=== PATIENT | male | born 1985 ===

== ENCOUNTER 2018-02-19 19:28 | Emergency (ER) | payer SELFPAY ==
[2018-02-19 19:29] VITALS: BMI 22.9
[2018-02-19 19:34] VITALS: BP 125/77; PULSE 72; RESP 16; TEMP 98.1; O2SAT 98
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
[2018-02-19] MEDS ORDERED: Bacitracin 500 Units/gm Oint Foilpak UD ONE ×2 (20:14→20:26)
--- NOTE | 2018-02-20 09:26 | RAD ---
PROCEDURE: Left Hand Radiographs. HISTORY: Pain, fall COMPARISON: None. FINDINGS: BONES: Normal. No fracture. JOINTS: Normal. No osteoarthritic changes. SOFT TISSUES: Normal. OTHER FINDINGS: None. IMPRESSION: Normal left hand radiographs.
--- NOTE | 2018-02-20 09:27 | RAD ---
PROCEDURE: Left Hip X-ray Radiographs. HISTORY: Pain, left hip COMPARISON: None. FINDINGS: BONES: Normal. No fracture. JOINTS: Normal. SOFT TISSUES: Normal. OTHER FINDINGS: None. IMPRESSION: Normal left hip radiographs.
== END 2018-02-19 21:31 | disposition home or self-care (01) ==
LOC: C.ER 19:28
DX: S40.212A Abrasion of left shoulder, initial encounter (principal); S50.812A Abrasion of left forearm, initial encounter; S50.811A Abrasion of right forearm, initial encounter; V18.4XXA Pedal cycle driver injured in noncollision transport accident in traffic accident, initial encounter; Y92.89 Other specified places as the place of occurrence of the external cause

== ENCOUNTER 2018-04-10 11:04 | Emergency (ER) | payer MEDICAID, OTHER ==
[2018-04-10 11:05] VITALS: BMI 22.9
[2018-04-10 11:11] VITALS: BP 130/87; PULSE 90; RESP 20; TEMP 98.4; O2SAT 97
--- NOTE | 2018-04-10 11:49 | C.PDOC ---
History Of Present Illness 32-year-old male presents to the ED for evaluation of sore throat which began yesterday. Patient reports subjective fever. Denies sick contacts. SORE THROAT SINCE YEST. SUBJ FEVER. NO SICK CONTACTS EXAM NAD HEENT +PHARYNGITIS W ERYTHEMA, EXUDATE. NO SWELL, DROOLING +SUBMAND NODE REMAINDER NEG Time Seen by Provider: 04/10/18 11:44 Chief Complaint (Nursing): ENT Problem History Per: Patient History/Exam Limitations: no limitations Onset/Duration Of Symptoms: Hrs Current Symptoms Are (Timing): Still Present Location Of Pain: Throat Sick Contacts (Context): None Associated Symptoms: Fever (subjective ), Sore Throat Additional History Per: Patient Past Medical History Reviewed: Historical Data, Nursing Documentation, Vital Signs Vital Signs: Last Vital Signs Temp 98.4 F 04/10/18 11:08 Pulse 90 04/10/18 11:08 Resp 20 04/10/18 11:08 BP 130/87 04/10/18 11:08 Pulse Ox 97 04/10/18 11:49 - Medical History PMH: No Chronic Diseases Surgical History: No Surg Hx Family History: States: Unknown Family Hx - Social History Hx Tobacco Use: Yes Hx Alcohol Use: Yes Hx Substance Use: No - Immunization History Hx Tetanus Toxoid Vaccination: Yes Hx Influenza Vaccination: No Hx Pneumococcal Vaccination: No Review Of Systems Constitutional: Positive for: Fever (subjective ) ENT: Positive for: Throat Pain Physical Exam - Physical Exam Appears: Non-toxic, No Acute Distress Skin: Normal Color, Warm, Dry Head: Atraumatic, Normacephalic Eye(s): bilateral: Normal Inspection Ear(s): Bilateral: Normal Nose: Normal, No Discharge Oral Mucosa: Moist Throat: Erythema, Exudate, No Drooling, No Other (swelling ) Lymphatic: Other (submandibular node ) Chest: Symmetrical, No Deformity, No Tenderness Cardiovascular: Rhythm Regular, No Murmur Respiratory: Normal Breath Sounds, No Rales, No Rhonchi, No Wheezing Extremity: Normal ROM, Capillary Refill (less than 2 seconds ) Neurological/Psych: Oriented x3, Normal Speech, Normal Cognition ED Course And Treatment O2 Sat by Pulse Oximetry: 97 (on RA) Pulse Ox Interpretation: Normal Disposition Counseled Patient/Family Regarding: Diagnosis, Need For Followup, Rx Given - Disposition Referrals: [facility] [Outside] [facility] [Outside] Disposition: HOME/ ROUTINE Disposition Time: 11:47 Condition: GOOD Prescriptions: Amoxicillin [Amoxil 500 mg Cap] 500 mg PO BID #20 cap Ibuprofen [Motrin] 600 mg PO Q6 #30 tab Instructions: Sore Throat, Adult (DC) Forms: [employer] (Namibian) - Clinical Impression Clinical Impression: Acute pharyngitis - Scribe Statement The provider has reviewed the documentation as recorded by the Scribe (Karla Souza) Provider Attestation: All medical record entries made by the Scribe were at my direction and personally dictated by me. I have reviewed the chart and agree that the record accurately reflects my personal performance of the history, physical exam, medical decision making, and the department course for this patient. I have also personally directed, reviewed, and agree with the discharge instructions and disposition.
== END 2018-04-10 11:54 | disposition home or self-care (01) ==
LOC: C.ER 11:04
DX: J02.9 Acute pharyngitis, unspecified (principal); Z72.0 Tobacco use

== ENCOUNTER 2018-05-31 10:18 | Emergency (ER) | payer MEDICAID, OTHER ==
[2018-05-31 10:18] VITALS: BMI 22.9
[2018-05-31 10:32] VITALS: RESP 16; TEMP 98.1; O2SAT 98
--- NOTE | 2018-05-31 11:01 | C.PDOC ---
History Of Present Illness 32 year old male presents to the ED complaining of sore throat for 2 days. Associated symptoms include coughing. Denies fever or chills. Reports he took Ibuprofen with no relief. States he had a similar presentation in February 2018. Time Seen by Provider: 05/31/18 10:36 Chief Complaint (Nursing): ENT Problem History Per: Patient History/Exam Limitations: no limitations Onset/Duration Of Symptoms: Days (2) Current Symptoms Are (Timing): Still Present Location Of Pain: Throat Associated Symptoms: Sore Throat, Cough. denies: Fever, Chills Past Medical History Reviewed: Historical Data, Nursing Documentation, Vital Signs Vital Signs: Last Vital Signs Temp 98.1 F 05/31/18 10:27 Pulse 69 05/31/18 10:27 Resp 16 05/31/18 10:27 BP 126/74 05/31/18 10:27 Pulse Ox 98 05/31/18 10:27 - Medical History PMH: No Chronic Diseases Surgical History: No Surg Hx Family History: States: No Known Family Hx - Social History Hx Tobacco Use: Yes Hx Alcohol Use: Yes Hx Substance Use: No - Immunization History Hx Tetanus Toxoid Vaccination: Yes Hx Influenza Vaccination: No Hx Pneumococcal Vaccination: No Review Of Systems Except As Marked, All Systems Reviewed And Found Negative. Constitutional: Negative for: Fever, Chills ENT: Positive for: Throat Pain Respiratory: Positive for: Cough Physical Exam - Physical Exam Appears: Non-toxic Skin: Warm, Dry Head: Normacephalic Eye(s): bilateral: Normal Inspection Ear(s): Bilateral: Normal Nose: Normal Tongue: Normal Appearing Lips: Normal Appearing Throat: Erythema, Exudate Neck: Supple Lymphatic: Adenopathy (Interior cervical lymphadenopathy ) Cardiovascular: Rhythm Regular Respiratory: Normal Breath Sounds, No Rales, No Rhonchi, No Wheezing Neurological/Psych: Oriented x3, Normal Speech Gait: Steady ED Course And Treatment O2 Sat by Pulse Oximetry: 98 (RA) Pulse Ox Interpretation: Normal Medical Decision Making Medical Decision Making: Plan: - Amoxicillin 500mg PO On re-examination, patient is resting comfortably in no acute distress. Patient reports improvement of symptoms. Patient given follow up instructions. Instructed to return to ER if symptoms worsen or new symptoms arise. Patient was instructed to follow up with the ENT as he states he gets frequent throat infections. Disposition - Disposition Referrals: Balaji Ratliff MD [Staff Provider] - Disposition: HOME/ ROUTINE Disposition Time: 11:00 Condition: STABLE Additional Instructions: Follow up with the ENT within 1-2 days without fail. Return if worsened. Prescriptions: Acetaminophen [Tylenol] 325 mg PO Q6 PRN #30 tab PRN Reason: Pain, Mild (1-3) Amoxicillin [Amoxil 500 mg Cap] 500 mg PO TID #29 cap Mag&Al/Simet/Diphen/Lido [First Magic Mouthwash] 5 ml MM BID #1 kit Instructions: Sore Throat, Adult (DC) Forms: [employer] (Setswana) - Clinical Impression Clinical Impression: Acute pharyngitis - PA / WET POUR MIXER / Resident Statement MD/DO has reviewed & agrees with the documentation as recorded. - Scribe Statement The provider has reviewed the documentation as recorded by the Scribe Abi Mederos All medical record entries made by the Scribe were at my direction and personally dictated by me. I have reviewed the chart and agree that the record accurately reflects my personal performance of the history, physical exam, medical decision making, and the department course for this patient. I have also personally directed, reviewed, and agree with the discharge instructions and disposition.
[2018-05-31 11:14] VITALS: BP 124/84; PULSE 68
== END 2018-05-31 11:13 | disposition home or self-care (01) ==
LOC: C.ER 10:18
DX: J02.9 Acute pharyngitis, unspecified (principal); Z72.0 Tobacco use